=== PATIENT | male | born 1970 | race American Indian/Alaskan Native ===

== ENCOUNTER 2019-05-08 23:57 | Emergency (ER) | payer MEDICARE ==
[2019-05-09] MEDS ORDERED: BENADRYL IV ONE (00:21)
[2019-05-09] MEDS ORDERED: SOLU-Medrol IV ONE (00:21)
[2019-05-09] MEDS ORDERED: PEPCID IV ONE (00:21)
[2019-05-09 00:49] LABS: Basophils % (Auto) 0.2 % (0.0-1.8); Eosinophils # (Auto) 0.1 K/mm3 (0.0-0.4); Eosinophils % (Auto) 0.8 % (0.0-4.3); Hematocrit 47.2 % (35.5-45.6); Hemoglobin 15.9 gm/dl (11.8-15.2); Lymphocytes # (Auto) 1.8 K/mm3 (1.2-5.4); Lymphocytes % (Auto) 19.8 % (13.4-35.0); Mean Corpuscular HGB Conc 34 % (32-34); Mean Corpuscular Volume 96 fl (84-94); Monocytes # (Auto) 0.7 K/mm3 (0.0-0.8); Monocytes % (Auto) 7.3 % (0.0-7.3); Platelet Count 160 K/mm3 (140-440); Red Blood Count 4.91 M/mm3 (3.65-5.03); Red Cell Distribution Width 13.1 % (13.2-15.2)
--- NOTE | 2019-05-09 00:53 | Emergency Department Report ---
HPI - General Chief Complaint: Allergic Reaction Time Seen by Provider: 05/09/19 00:16 - HPI HPI: 49-year-old -[place]yp[place] male presents to the emergency department with a complaint of some itching, facial swelling and possible allergic reaction that started about an hour prior to arrival. The patient says that he ate some noodles with shrimp and the symptoms started shortly afterwards. Patient also started having an upset stomach and felt like he had to have a bowel movement. Patient says that he urinated and had a bowel movement upon arrival to the emergency department, in the bathroom, and at that time his symptoms have also started to improve. He did not take anything for his symptoms prior to arrival. The patient has a past medical history of schizophrenia for which he takes Risperdal. ED Past Medical Hx - Past Medical History Previous Medical History?: No - Surgical History Past Surgical History?: Yes Hx Appendectomy: Yes - Social History Smoking Status: Current Every Day Smoker Substance Use Type: Alcohol, Marijuana - Medications Home Medications: Home Medications Medication Instructions Recorded Confirmed Last Taken Type EPINEPHrine [Epipen] 0.3 mg IJ ONCE PRN #1 auto.injct 05/09/19 Unknown Rx Famotidine [Pepcid] 20 mg PO BID #6 tablet 05/09/19 Unknown Rx diphenhydrAMINE [Benadryl CAP] 25 mg PO Q8HR PRN #9 capsule 05/09/19 Unknown Rx predniSONE [Deltasone] 20 mg PO BID #6 tab 05/09/19 Unknown Rx ED Review of Systems ROS: Stated complaint: POSSIBLE ALLERGIC REACTION Other details as noted in HPI Comment: All other systems reviewed and negative Constitutional: denies: chills, fever Eyes: denies: eye pain, vision change ENT: denies: ear pain, throat pain Respiratory: denies: cough, shortness of breath Cardiovascular: denies: chest pain, palpitations Gastrointestinal: abdominal pain. denies: vomiting Genitourinary: denies: dysuria, discharge Musculoskeletal: denies: back pain, arthralgia Skin: rash, pruritus Neurological: denies: headache, weakness Physical Exam - Physical Exam Vital Signs: Vital Signs 05/09/19 00:23 Temperature 97.7 F Pulse Rate 113 H Respiratory 18 Rate Blood Pressure 141/93 Blood Pressure 141/93 [Left] O2 Sat by Pulse 96 Oximetry Physical Exam: GENERAL: The patient is well-developed well-nourished. HENT: Normocephalic. Atraumatic. Patient has moist mucous membranes. Oropharynx is clear. No drooling or trismus. EYES: Extraocular motions are intact. NECK: Supple. Trachea is midline. CHEST/LUNGS: Clear to auscultation. There is no respiratory distress noted. HEART/CARDIOVASCULAR: Regular. There is no tachycardia. There is no murmur. ABDOMEN: Abdomen is soft, nontender. Patient has normal bowel sounds. There is no abdominal distention. SKIN: Skin is warm and dry. NEURO: The patient is awake, alert, and oriented. The patient is cooperative. The patient has no focal neurologic deficits. The patient has normal speech. MUSCULOSKELETAL: There is no tenderness or deformity. There is no evidence of acute injury. ED Course Vital Signs 05/09/19 00:23 Temperature 97.7 F Pulse Rate 113 H Respiratory 18 Rate Blood Pressure 141/93 Blood Pressure 141/93 [Left] O2 Sat by Pulse 96 Oximetry ED Medical Decision Making - Lab Data Result diagrams: 05/09/19 00:36 05/09/19 00:36 - Medical Decision Making This patient initially came in with complaint of an allergic reaction to some shrimp and/or noodles that he ate earlier prior to arrival. He describes some itching and hives to his feet, a scratchy throat but did not have any complaint of lower signs of angioedema or any significant anaphylactic symptoms. Patient's vital signs were stable throughout his ED course. He was given a dose of steroids, Benadryl and Pepcid. His labs were unremarkable including CBC and BMP. The patient was reevaluated multiple times for multiple hours and there has been no return of his allergic reaction symptoms. The patient also admitted that he partially came in because he was wet from the rain and was cold. While I did not see any significant allergic reaction symptoms, I believe the patient when he says that he had a reaction, and the patient will be discharged home with some prednisone, Pepcid and Benadryl. Since he previously described some scratchiness to the throat, he was given a prescription for an EpiPen that he does not need to use at this time but we discussed angioedema or anaphylaxis type symptoms that would prompt him to need to use the EpiPen. He also understands that if he needs to use the EpiPen, then he is to call 911 immediately afterwards. - Differential Diagnosis allergic reaction, angioedema, anaphylaxis, dermatitis Critical Care Time: No Critical care attestation.: If time is entered above; I have spent that time in minutes in the direct care of this critically ill patient, excluding procedure time. ED Disposition Clinical Impression: Allergic reaction Qualifiers: Encounter type: initial encounter Qualified Code(s): T78.40XA - Allergy, unspecified, initial encounter Disposition: TO HOME OR SELFCARE Is pt being admited?: No Condition: Stable Instructions: Food Allergy (ED) Additional Instructions: Please follow up with your primary care physician in the next few days. Return to the emergency Department with any worsening of your symptoms or any acute distress. Take the medications as prescribed. I am giving you a prescription for an EpiPen that should only be used if you develop any allergic reaction symptoms consistent with anaphylaxis such as swelling of the tongue, swelling of the throat, inability to swallow, chest pain or shortness of breath. If you have to use the EpiPen, call 911 immediately afterwards. Prescriptions: diphenhydrAMINE [Benadryl CAP] 25 mg PO Q8HR PRN #9 capsule PRN Reason: Allergic Reaction predniSONE [Deltasone] 20 mg PO BID #6 tab EPINEPHrine [Epipen] 0.3 mg IJ ONCE PRN #1 auto.injct PRN Reason: Anaphylaxis Famotidine [Pepcid] 20 mg PO BID #6 tablet Referrals: HOLLIE BARR DO [Staff Physician] - 3-5 Days [facility] [Outside] - 3-5 Days Time of Disposition: 03:02
[2019-05-09 01:08] LABS: BUN/Creatinine Ratio 12; Blood Urea Nitrogen 13 mg/dL (9-20); Calcium 8.8 mg/dL (8.4-10.2); Hemolysis Index 11
[2019-05-09 02:31] VITALS: BP 123/88
== END 2019-05-09 03:20 | disposition home or self-care (01) ==
LOC: ED 23:57
DX: T78.1XXA Other adverse food reactions, not elsewhere classified, initial encounter (principal); F12.10 Cannabis abuse, uncomplicated; Z90.49 Acquired absence of other specified parts of digestive tract; Z79.899 Other long term (current) drug therapy; Z91.013 Allergy to seafood; Y92.89 Other specified places as the place of occurrence of the external cause
CPT/HCPCS: 36415; 80048; 85025; 96374; 96375; 99283; J1200; J2930; 80320; G0480